=== PATIENT | female | born 1980 | race Caucasian/White ===

== ENCOUNTER → 2019-11-14 11:43 | Outpatient (CLI) | payer OTHER, SELFPAY ==
--- NOTE | 2019-11-14 | DI.MRI.S_ITS ---
PROCEDURE: MR LUMBAR SPINE WO CON INDICATIONS: Myalgia, unspecified site TECHNIQUE: Noncontrast sagittal T1 spin echo and T2 fast echo, sagittal STIR, axial T1 and T2 fast spin echo through the lumbar spine. In cases with scoliosis, additional coronal T2 fast spin echo may be performed. COMPARISON: None. FINDINGS: Image quality: Excellent. Alignment and Curvature: No plain films are available for comparison, for numbering purposes. Thus, for the purposes of this examination, 5 lumbar type vertebral bodies will be presumed, as denoted on the montage panel. This should be confirmed and correlated with plain films, prior to any lumbar spinal intervention.There is normal bony alignment. Bone Marrow: Marrow is of normal overall signal. No acute vertebral body compression fractures. Spinal Cord: Conus medullaris terminates at the mid L1 level. Visualized cord demonstrates normal signal and size. Paraspinous Soft Tissues: No paravertebral masses. There is moderate ill defined STIR signal elevation within the midline posterior paraspinous soft tissues at the L1-L3 levels. L1-L2: Normal appearance. L2-L3: Normal appearance. L3-L4: Normal appearance. L4-L5: Normal appearance. L5-S1: Normal appearance. IMPRESSION: Moderate edema versus cellulitis within the posterior subcutaneous fat of the mid/upper back. Otherwise negative negative lumbar spine MRI. No neural impingement. Dictated by: Marshal Young M.D. on 11/14/2019 at 13:55 Approved by: Marshal Young M.D. on 11/14/2019 at 13:57
== END ==
PROVIDERS: Visit Provider Family Medicine
DX: M79.10 Myalgia, unspecified site (principal); M25.552 Pain in left hip; M54.16 Radiculopathy, lumbar region; R29.898 Other symptoms and signs involving the musculoskeletal system
CPT/HCPCS: 72148

== ENCOUNTER → 2022-07-11 18:37 | Outpatient (CLI) | payer OTHER, SELFPAY ==
--- NOTE | 2022-07-11 18:39 | DI.MRI.S_ITS ---
PROCEDURE: MR THORACIC SPINE WO/W CON INDICATIONS: LUMPS ON THE BACK TECHNIQUE: Noncontrast sagittal T1 spin echo and T2 fast spin echo, sagittal STIR, axial T1 and T2 fast spin echo through the thoracic spine. After the administration of contrast, axial and sagittal T1 spin echo with fat saturation through the thoracic spine. In this patient, a wide field of view study was performed root image the area of clinical concern. COMPARISON: None. FINDINGS: Image quality: Excellent. Alignment and curvature: Accentuated thoracic kyphosis is seen. No focal AP alignment abnormality is seen. Marrow: Marrow is of normal overall signal. No acute vertebral body compression fractures. Spinal cord: Visualized spinal cord is of normal signal and size, without abnormal enhancement. Paraspinous soft tissues: In this patient with this given history, scrutiny is given to the clinically palpable lump involving the right upper back laterally. At this site, there is an enhancing superficial nodule with apparent satellite nodules that measures 2.7 x 1.7 cm in greatest axial dimension, with a craniocaudal extent of 3.3 cm. There is prominent uniform enhancement seen within this lesion. Along the medial aspect of this lesion, there is poorly defined infiltration seen of the surrounding subcutaneous fat. Miscellaneous: Central canal and foramina appear widely patent at all scanned levels. IMPRESSION: At the area of clinical concern, there is a prominently enhancing 3.3 cm subcutaneous mass involving the right upper back superficially. While this may be simply related to a benign skin lesion, concern is raised for neoplasm, given the prominent enhancement. Please consider resection versus ultrasound-guided percutaneous biopsy. Dictated by: Vega Alexander M.D. on 07/12/2022 at 8:52 Approved by: Vega Alexander M.D. on 07/12/2022 at 8:55
== END ==
PROVIDERS: Referring Provider Physician Assistant; Visit Provider Physician Assistant
DX: R22.9 Localized swelling, mass and lump, unspecified (principal)
CPT/HCPCS: 72157; A9579

== ENCOUNTER → 2022-08-23 11:01 | Outpatient (CLI) | payer OTHER, SELFPAY ==
[2022-08-23 13:13] LABS: COVID19 -Nasal RAPID Negative (Negative)
== END ==
PROVIDERS: PCP Family Medicine; Visit Provider Surgery
DX: Z20.822 Contact with and (suspected) exposure to COVID-19 (principal); Z01.812 Encounter for preprocedural laboratory examination
CPT/HCPCS: 87635; C9803

== ENCOUNTER 2022-08-24 14:25 | Day surgery (SDC) | payer OTHER, SELFPAY ==
[2022-08-19 10:58] VITALS: BMI 42.8
[2022-08-24] VITALS (7 sets, daily range): BP systolic 128–150; BP diastolic 77–93; PULSE 76–92; RESP 12–18; TEMP 36.2–36.9; O2SAT 92–98; BMI 42.8
--- NOTE | 2022-08-24 | PATH_ITS ---
[facility] Accession Number: [id number] . 01 Material submitted: . PART A: back - BACK PART B: back - BACK . 01 Clinical history: . A: MASS- SHORT STITCH SUPERIOR, LONG STITCH LATERAL INK POWERS POSTERIOR MARGIN B: MASS - ANTERIOR MARGIN . 01 Diagnosis: A, B. Back Mass and Back Mass Anterior Margin, Excisions: Pending outside expert consultation. MRV 09/08/2022 1740 Local . 01 Comment: Immunohistochemical stains using S100, SOX10, HMB45, MelanA, CD1a, CD68, pancytokeratin, high molecular weight cytokeratin, CD34, CD10, desmin and SMA markers were performed. . 01 Electronically signed: . Keyla Colón MD, Dermatopathologist NPI- [id number] . 01 Gross description: . A. Received in formalin labeled with the patient's name, and back mass, short stitch superior, long stitch lateral, ink powers posterior margin, and consists of an oriented yellow roughened fragment of soft tissue with a short stitch designating superior, a long stitch designation lateral, and blue ink designating posterior, per the requisition, and measuring 5.8 cm from medial to lateral, 4.7 cm from superior to inferior, and 1.7 cm from anterior to posterior. No skin is identified and the specimen is inked as follows: Anterior yellow, posterior black, medial blue, lateral green, superior orange, and inferior red. The specimen is serially sectioned from medial to lateral into ten 3 mm slices to reveal an ill-defined pale doran firm area found within all ten slices and measuring 5.8 x 2.9 x 1.3 cm. This area grossly abuts the anterior, superior, medial ,and lateral margins, measures 0.2 cm from the posterior margin and 0.6 cm from the inferior margin. No additional lesions are identified, and the remaining cut surface is yellow soft adipose tissue. Short Piece Handler sections are submitted as follows: . A1: Rep slice 1 medial margin perpendicular. A2: Entire slice 3 to include anterior, posterior, inferior, and medial margins. A3: Rep slice 5 to include anterior, posterior, and superior margins. A4: Rep slice 7 to include anterior, posterior, and inferior margins. A5: Rep slice 9 to include anterior, posterior, and superior margins. A6: Rep slice 10 lateral margin perpendicular. . B. Received in formalin labeled with the patient's name, and back mass anterior margin, and consists of an unoriented ellipse of skin measuring 4.1 x 1.5 cm and excised to a depth of 1.4 cm. The margin is inked blue. The specimen is serially sectioned to reveal a doran and firm to yellow and soft cut surface. The specimen is submitted entirely as follows: . B1: Tips. B2-B8: Remaining sequential slices. ([id number]) /MRV 08/26/2022 [facility] Local . 01 Pathologist provided ICD-10: D48.5 . 01 CPT . 098488, 306827, [id number], [id number] Specimen Comment: A courtesy copy of this report has been sent to [phone] Performed at: [facility] [address] [place] [address], [place], [place] [id number] MD Gerald Milton MD Phone: [phone]
[2022-08-24] MEDS: LACTATED RINGERS 1,000 ML 100 ML IV (14:59)
--- NOTE | 2022-08-24 15:19 | PM.PREOP ---
Pre-operative Note Interval Note History & Physical reviewed/Exam performed by Physician: Yes Changes to H&P: No
--- NOTE | 2022-08-24 15:22 | PM.OP.1 ---
Operative Date/Time/Diagnoses Date of procedure: 08/24/22 Time of procedure: 15:22 Pre-op diagnosis: soft tissue mass of back Post-op diagnosis: same Procedure & Clinicians Procedure: excision of soft tissue mass from back Same procedure as scheduled: Yes Indications: Painful 5 cm mass of right upper back biopsy demonstrates benign fibrotic process Surgeon: Pascual Singh Anesthesia Type: General Operative Notes Findings: Fibrotic calcified soft tissue mass 5 cm Specimen(s): other (back mass short stitch superior long stitch lateral her ink leonardo the posterior margin. Additional anterior margin) Estimated Blood Loss (mL): 20 Procedure in detail: Patient was brought to the operating room placed supine on the table. Bilateral lower extremity compression devices were applied. General anesthesia was induced she was intubated with a endotracheal tube. She received 3 g of Ancef prior to skin incision. She was placed into the left lateral decubitus position and appropriately padded. She was then prepped and draped in sterile fashion. Time-out was performed. An incision on the right upper back over the mass was made. The subcutaneous tissue was divided and the mass was encountered. It was approximately 5 cm in size densely fibrotic and with calcifications. Mass was above the level of the muscle and within the subcutaneous tissue. Mass was excised and passed off the field labeled short stitch superior long stitch lateral ink marking the posterior margin. Inspection of the wound demonstrated that there was some additional calcification extending into the dermis and therefore an additional anterior margin was taken labeled anterior margin. Hemostasis was achieved. 2 metal clips were placed in the deep aspect of the wound cavity. The wound was then closed in layers using Vicryl suture skin was closed with 4-0 Monocryl and Dermabond. Total of 30 mL of 0.5% Marcaine was he uses local anesthetic. She was extubated transferred to recovery in stable condition. Complications: none Post-operative Condition: stable Disposition: same day surgery
[2022-08-24] MEDS: CEFAZOLIN 2 GM/100 ML PREMIX 100 ML IV (15:30)
[2022-08-24] MEDS: CEFAZOLIN VIAL 1 GM in SODIUM CHLORIDE 0.9% 100 ML IV (15:30)
[2022-08-24] MEDS: BUPIVACAINE 0.25% (PF) VIAL 30 ML INJ (15:45)
--- NOTE | 2022-08-24 15:48 | SUR.OPER ---
Left Lateral on a holley bag, head on pillow, gel axillary roll in place, bottom leg bent with gel pad under knee to foot, upper leg straight and supported with pillows. Upper arm supported by pillows and secured over bottom arm to padded arm board. Gel pads under left arm resting on arm board. Safety belt at hip, tape over blanket lower legs.
[2022-08-24] MEDS: OXYCODONE/ACETAMINOPHEN 5/325 TABLET 1 TAB PO (16:43)
--- NOTE | 2022-08-24 17:17 | SUR.PHASEII ---
Patient reported 6/10 surgical site pain. Rt shoulder site CDI, ice pack placed. Spouse updated with patient's status.
== END 2022-08-24 17:44 | disposition home or self-care (01) ==
PROVIDERS: PCP Family Medicine; Referring Provider Surgery; Visit Provider Surgery
PROC: (CPT 11406; principal; 2022-08-24 15:45)
DX: D48.5 Neoplasm of uncertain behavior of skin (principal); E11.9 Type 2 diabetes mellitus without complications; J45.909 Unspecified asthma, uncomplicated; I10 Essential (primary) hypertension; G47.30 Sleep apnea, unspecified
CPT/HCPCS: 11406; 12032; 81025; J0690; J1100; J1885; J2250; J2405; J2704; J3010